=== PATIENT | female | born 1990 | race Caucasian/White ===

== ENCOUNTER 2021-11-10 22:05 | Emergency (ER) | payer MEDICAID, OTHER ==
[~2021-11-10] VITALS: Ht 165.1 cm; Wt 70.8 kg
[2021-11-10] MEDS ORDERED: NS IV 1000 ML 1,000 ML IV STA (22:19)
--- NOTE | 2021-11-10 22:21 | ED Abdominal Pain ---
General Chief Complaint: Abdominal/GI Problems Stated Complaint: RIGHT SIDE ABD PAIN Source of Information: Patient Exam Limitations: No Limitations (LY MOMIN) History of Present Illness Date Seen by Provider: Nov 10, 2021 Time Seen by Provider: 22:20 Initial Comments Patient is a 31-year-old female who presents ED with right lower quad abdominal pain. Acute onset 5 hours ago. Pain is described as sharp knife like pain and has been mostly constant. Patient states she was sitting at home with acute onset of this pain. Radiating pain to the right flank with darkish urine. Last bowel movement was yesterday and states it was soft in nature. Last menstrual cycle 4 days ago. Not concern for . No current vaginal bleeding, vaginal discharge.. Denies of any vomiting. She reports nausea. History tubal ligation, and cholecystectomy. No chest pain, cough, shortness of breath. She states she was sitting in the waiting room at [facility] and was not seen so she came to the ED. Denies taking anything for pain at home. (LY MOMIN) Allergies and Home Medications Allergies Coded Allergies: No Known Drug Allergies (Unverified , 11/10/21) Patient Home Medication List Home Medication List Reviewed: Yes (LY MOMIN) Cephalexin (Cephalexin) 500 Mg Tablet, 500 MG PO BID Prescribed by: YOSI RICHARDSON on 11/10/212311 Naproxen (Naproxen) 500 Mg Tablet.dr, 500 MG PO BID Prescribed by: YOSI RICHARDSON on 11/10/212311 Review of Systems Review of Systems Constitutional: No chills, No diaphoresis, No fever, No malaise EENTM: No Eye Tearing, No Throat Pain, No Throat Swelling Respiratory: Denies Cough, Denies Orthopnea, Denies SOA With Exertion, Denies SOA at Rest Cardiovascular: Denies Chest Pain, Denies Edema Gastrointestinal: Abdominal Pain; Denies Constipated, Denies Diarrhea; Nausea; Denies Vomiting Genitourinary: Denies Burning, Denies Discharge, Denies Frequency; Flank Pain; Denies Hematuria Musculoskeletal: back pain; No joint pain Skin: No change in color, No change in hair/nails Psychiatric/Neurological: Denies Anxiety, Denies Depressed (LY MOMIN) All Other Systems Reviewed Negative Unless Noted: Yes (LY MOMIN) Physical Exam Vital Signs Vital Signs - First Documented 11/10/21 22:13 Temp 36.9 Pulse 95 Resp 24 B/P (MAP) 109/95 (100) Pulse Ox 100 O2 Delivery Room Air (TRANGRACHEL K DO) Vital Signs Capillary Refill : (LY MOMIN) Height/Weight/BMI Height: '" Weight: lbs. oz. kg; BMI Method: General Appearance: WD/WN, no apparent distress HEENT: PERRL/EOMI, normal ENT inspection, TMs normal, pharynx normal Neck: non-tender, full range of motion, supple, normal inspection Respiratory: chest non-tender, lungs clear, normal breath sounds, no respiratory distress, no accessory muscle use Cardiovascular: regular rate, rhythm, no edema (LY MOMIN) Progress/Results/Core Measures Results/Orders Lab Results Laboratory Tests Test 11/10/21 22:15 11/10/21 22:23 Range/Units White Blood Count 8.8 4.3-11.0 10^3/uL Red Blood Count 5.05 3.80-5.11 10^6/uL Hemoglobin 14.2 11.5-16.0 g/dL Hematocrit 43 35-52 % Mean Corpuscular Volume 85 80-99 fL Mean Corpuscular Hemoglobin 28 25-34 pg Mean Corpuscular Hemoglobin Concent 33 32-36 g/dL Red Cell Distribution Width 12.6 10.0-14.5 % Platelet Count 323 130-400 10^3/uL Mean Platelet Volume 10.0 9.0-12.2 fL Immature Granulocyte % (Auto) 0 % Neutrophils (%) (Auto) 58 42-75 % Lymphocytes (%) (Auto) 34 12-44 % Monocytes (%) (Auto) 6 0-12 % Eosinophils (%) (Auto) 2 0-10 % Basophils (%) (Auto) 1 0-10 % Neutrophils # (Auto) 5.1 1.8-7.8 10^3/uL Lymphocytes # (Auto) 3.0 1.0-4.0 10^3/uL Monocytes # (Auto) 0.5 0.0-1.0 10^3/uL Eosinophils # (Auto) 0.2 0.0-0.3 10^3/uL Basophils # (Auto) 0.1 0.0-0.1 10^3/uL Immature Granulocyte # (Auto) 0.0 0.0-0.1 10^3/uL Sodium Level 136 135-145 MMOL/L Potassium Level 3.5 L 3.6-5.0 MMOL/L Chloride Level 104 98-107 MMOL/L Carbon Dioxide Level 19 L 21-32 MMOL/L Anion Gap 13 5-14 MMOL/L Blood Urea Nitrogen 11 7-18 MG/DL Creatinine 0.78 0.60-1.30 MG/DL Estimat Glomerular Filtration Rate 103 BUN/Creatinine Ratio 14 Glucose Level 93 70-105 MG/DL Calcium Level 9.8 8.5-10.1 MG/DL Corrected Calcium 9.6 8.5-10.1 MG/DL Total Bilirubin 1.2 H 0.1-1.0 MG/DL Aspartate Amino Transf (AST/SGOT) 11 5-34 U/L Alanine Aminotransferase (ALT/SGPT) 11 0-55 U/L Alkaline Phosphatase 66 40-136 U/L Total Protein 7.4 6.4-8.2 GM/DL Albumin 4.3 3.2-4.5 GM/DL Lipase 42 8-78 U/L Urine Color YELLOW Urine Clarity CLEAR Urine pH 8.5 5-9 Urine Specific [place] 1.020 1.016-1.022 Urine Protein NEGATIVE NEGATIVE Urine Glucose (UA) NEGATIVE NEGATIVE Urine Ketones NEGATIVE NEGATIVE Urine Nitrite NEGATIVE NEGATIVE Urine Bilirubin NEGATIVE NEGATIVE Urine Urobilinogen 1.0 < = 1.0 MG/DL Urine Leukocyte Esterase 1+ H NEGATIVE Urine RBC (Auto) NEGATIVE NEGATIVE Urine RBC RARE /HPF Urine WBC 10-25 H /HPF Urine Squamous Epithelial Cells 2-5 /HPF Urine Crystals NONE /LPF Urine Bacteria MODERATE H /HPF Urine Casts NONE /LPF Urine Mucus MODERATE H /LPF Urine Culture Indicated YES Urine Test NEGATIVE NEGATIVE Urine Opiates Screen NEGATIVE NEGATIVE Urine Oxycodone Screen NEGATIVE NEGATIVE Urine Methadone Screen NEGATIVE NEGATIVE Urine Propoxyphene Screen NEGATIVE NEGATIVE Urine Barbiturates Screen NEGATIVE NEGATIVE Ur Tricyclic Antidepressants Screen NEGATIVE NEGATIVE Urine Phencyclidine Screen NEGATIVE NEGATIVE Urine Amphetamines Screen NEGATIVE NEGATIVE Urine Methamphetamines Screen NEGATIVE NEGATIVE Urine Benzodiazepines Screen NEGATIVE NEGATIVE Urine Cocaine Screen NEGATIVE NEGATIVE Urine Cannabinoids Screen POSITIVE H NEGATIVE (RACHEL COSTELLO DO) Medications Given in ED Current Medications Medications Dose Ordered Sig/Candice Route Start Time Stop Time Status Last Admin Dose Admin Ketorolac Tromethamine 30 mg ONCE ONCE IVP 11/10/21 22:30 11/10/21 22:31 DC 11/10/21 22:29 30 MG Ondansetron HCl 4 mg ONCE ONCE IVP 11/10/21 22:30 11/10/21 22:31 DC 11/10/21 22:29 4 MG (RACHEL COSTELLO DO) Vital Signs/I&O 11/10/21 11/10/21 22:13 23:40 Temp 36.9 Pulse 95 73 Resp 24 18 B/P (MAP) 109/95 (100) 112/79 Pulse Ox 100 100 O2 Delivery Room Air Room Air 11/10/21 23:59 Intake Total 1000 ml Balance 1000 ml (RACHEL COSTELLO DO) Departure Impression Primary Impression: UTI (urinary tract infection) Additional Impression: Abdominal pain Disposition: HOME, SELF-CARE Condition: Stable Departure-Patient Inst. Decision time for Depature: 23:11 (LY MOMIN) Referrals: [facility],LOCAL PHYSICIAN (PCP) Primary Care Physician Patient Instructions: Abdominal Pain, Adult ED Scripts Naproxen (Naproxen) 500 Mg Tablet.dr 500 MG PO BID for 7 Days, #14 TAB Prov: LY MOMIN 11/10/21 Cephalexin (Cephalexin) 500 Mg Tablet 500 MG PO BID for 7 Days, #14 TAB Prov: LY MOMIN 11/10/21 ATTENDING PHYSICIAN NOTE: I WAS PHYSICALLY PRESENT ER PHYSICIAN, BUT I WAS NOT INVOLVED IN ANY DECISION MAKING OR ANY CARE OF THIS PATIENT (RACHEL COSTELLO DO) LY MOMIN Nov 10, 2021 22:21 RACHEL COSTELLO DO Nov 11, 2021 01:17
[2021-11-10 22:23] LABS: BASOPHILS # (AUTO) 0.1 10^3/uL (0.0-0.1); BASOPHILS % (AUTO) 1 % (0-10); EOSINOPHILS # (AUTO) 0.2 10^3/uL (0.0-0.3); EOSINOPHILS % (AUTO) 2 % (0-10); HEMATOCRIT 43 % (35-52); HEMOGLOBIN 14.2 g/dL (11.5-16.0); LYMPHOCYTES % (AUTO) 34 % (12-44); MEAN CORPUSCULAR HEMOGLOBIN 28 pg (25-34); MEAN CORPUSCULAR HGB CONC 33 g/dL (32-36); MEAN CORPUSCULAR VOLUME 85 fL (80-99); MONOCYTES # (AUTO) 0.5 10^3/uL (0.0-1.0); MONOCYTES % (AUTO) 6 % (0-12); NEUTROPHILS # (AUTO) 5.1 10^3/uL (1.8-7.8); NEUTROPHILS % (AUTO) 58 % (42-75); PLATELET COUNT 323 10^3/uL (130-400); WHITE BLOOD COUNT 8.8 10^3/uL (4.3-11.0)
[2021-11-10] MEDS ORDERED: ONDANSETRON 4 MG/2 ML (SDV) Z0FRAN IVP ONE (22:30)
[2021-11-10] MEDS ORDERED: KETOROLAC 30 MG/ML VIAL IVP ONE (22:30)
[2021-11-10] MEDS ORDERED: morphine INJ 10 MG/ML 1ML (SYR OR VIAL) IVP ONE (22:30)
[2021-11-10 22:31] LABS: BILIRUBIN,URINE NEGATIVE (NEGATIVE); CLARITY,URINE CLEAR; COLOR,URINE YELLOW; GLUCOSE, URINE (UA) NEGATIVE (NEGATIVE); KETONES,URINE NEGATIVE (NEGATIVE); LEUKOCYTE ESTERASE ,URINE 1+ (NEGATIVE); NITRITE,URINE NEGATIVE (NEGATIVE); PH,URINE 8.5 (5-9); PROTEIN,URINE NEGATIVE (NEGATIVE)
[2021-11-10 22:37] LABS: BACTERIA,URINE MODERATE /HPF; RBC,URINE RARE /HPF
[2021-11-10 22:38] LABS: ALBUMIN 4.3 GM/DL (3.2-4.5)
[2021-11-10 22:39] LABS: POTASSIUM 3.5 MMOL/L (3.6-5.0)
[2021-11-10 22:40] LABS: CALCIUM 9.8 MG/DL (8.5-10.1)
[2021-11-10 22:41] LABS: TOTAL PROTEIN 7.4 GM/DL (6.4-8.2)
[2021-11-10 22:43] LABS: BILIRUBIN,TOTAL 1.2 MG/DL (0.1-1.0)
[2021-11-10 22:45] LABS: CREATININE SERUM 0.78 MG/DL (0.60-1.30)
--- NOTE | 2021-11-10 22:59 | Diagnostic Imaging Report ---
PROCEDURE: CT abdomen and pelvis without contrast. TECHNIQUE: Multiple contiguous axial images were obtained through the abdomen and pelvis without the use of intravenous contrast. Auto Exposure Controls were utilized during the CT exam to meet ALARA standards for radiation dose reduction. INDICATION: Right lower quadrant abdominal pain. FINDINGS: Unenhanced images of liver and spleen reveal no focal abnormality. Gallbladder is surgically absent. There is no significant biliary ductal dilatation. There is no evidence of pancreatic or adrenal gland abnormality. Unenhanced images of the kidneys are unremarkable. There is no hydronephrosis or renal calculus. There is no evidence of urinary tract stone or obstruction. There is an approximately 1.7 cm cystic structure in the left ovary. Uterus, itself, is somewhat prominent and retroverted. There is high density focus in the appendix which may represent an appendicolith however no appendiceal enlargement or inflammation is identified. There is mild distention of the terminal ileum with hyperdense fluid as well. There is no evidence of significant focal inflammation. No organized fluid collection is seen. IMPRESSION: 1. No definite acute abnormality is identified. There is an appendicolith without associated appendiceal inflammation. 2. There may be stasis at the level of the terminal ileum without surrounding inflammation and clinical correlation would be useful. 3. Otherwise, no definite abnormality is seen. Dictated by: Dictated on workstation # [id number]
[2021-11-10 23:05] LABS: AMPHETAMINE SCREEN, URINE NEGATIVE (NEGATIVE); BARBITURATE SCREEN URINE NEGATIVE (NEGATIVE); BENZODIAZEPINES SCREEN URINE NEGATIVE (NEGATIVE); CANNABINOID SCREEN, URINE POSITIVE (NEGATIVE); COCAINE SCREEN URINE NEGATIVE (NEGATIVE); METHADONE STAT NEGATIVE (NEGATIVE); METHAMPHETAMINE SCREEN URINE S NEGATIVE (NEGATIVE); OPIATE SCREEN URINE NEGATIVE (NEGATIVE); OXYCODONE STAT NEGATIVE (NEGATIVE); PROPOXYPHENE STAT NEGATIVE (NEGATIVE); TRICYCLIC ANTIDEPRESSANTS SCRE NEGATIVE (NEGATIVE)
[2021-11-10] MEDS ORDERED: CEPHALEXIN 250 MG (KEFLEX) CAP PO STA (23:12)
[2021-11-10] MEDS ORDERED: NAPR500T8 PO (23:12)
[2021-11-10] MEDS ORDERED: CEPH500T PO (23:12)
[2021-11-10 23:40] VITALS: BP 112/79
== END 2021-11-10 23:43 | disposition home or self-care (01) ==
LOC: ER 22:08
DX: N39.0 Urinary tract infection, site not specified (principal)
CPT/HCPCS: 36415; 74176; 80053; 80306; 81000; 83690; 84703; 85025; 87088